=== PATIENT | male | born 1995 | race Hispanic/Latino ===

== ENCOUNTER 2017-05-05 20:51 | Emergency (ER) | payer SELFPAY | END 2017-05-05 22:11 | disposition home or self-care (01) | LOC: EDH 20:51 | DX: F41.1 Generalized anxiety disorder (principal); G43.909 Migraine, unspecified, not intractable, without status migrainosus | CPT/HCPCS: 99281 ==

== ENCOUNTER → 2023-02-07 07:07 | Emergency (ER) | payer BC ==
[~2023-02-07] VITALS: Ht 180.3 cm; Wt 115.7 kg
[2023-02-07 07:12] VITALS: BP 132/97; PULSE 105; RESP 20
== END ==
LOC: EDH 07:07 → EEVIPCON 07:07
DX: Z02.79 Encounter for issue of other medical certificate (principal); Z53.21 Procedure and treatment not carried out due to patient leaving prior to being seen by health care provider

== ENCOUNTER 2024-10-09 21:39 | Emergency (ER) | payer BC ==
[~2024-10-09] VITALS: Ht 180.3 cm; Wt 102.5 kg
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
[2024-10-09] MEDS ORDERED: KETO10 PO (23:03)
[2024-10-09 23:06] VITALS: BP 132/75; PULSE 79; RESP 19; TEMP 98; O2SAT 96
--- NOTE | 2024-10-09 23:15 | NUR ---
KNEE IMMOBILZER APPLIED TO RIGHT LOWER EXTREMITY, CAP REFILL LESS THAN 3 SECONDS WITH SENSATION INTACT DISTAL TO INJURY. CRUTCH TRAINING PROVIDED WITH RETURN DEMONSTRATION. PT VERBALIZED UNDERSTANDING OF ALL EDUCATION PROVIDED REGARDING IMMOBILIZER, CRUTCHES, AND FOLLOW UP WITH PCP.
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
== END 2024-10-09 23:30 | disposition home or self-care (01) ==
LOC: EDH 21:39
DX: S83.206A Unspecified tear of unspecified meniscus, current injury, right knee, initial encounter (principal); Y04.0XXA Assault by unarmed brawl or fight, initial encounter; Y93.89 Activity, other specified; Y92.89 Other specified places as the place of occurrence of the external cause; Y99.8 Other external cause status
CPT/HCPCS: 29505; 73564; 99283